=== PATIENT | male | born 1955 | race Caucasian/White ===

== ENCOUNTER 2022-06-06 08:19 | Outpatient (REF) | payer OTHER, SELFPAY ==
--- NOTE | ~2022-06-06 | XR_ITS ---
EXAMINATION: XR CHEST CLINICAL INFORMATION: Weight loss. COMPARISON: X-ray 03/23/2011 TECHNIQUE: 2 views of the chest were obtained. FINDINGS: The mediastinum and janet are within normal limits, stable from previous. No evidence of Consolidation, effusion, edema or pneumothorax. Mild thoracic spine degeneration.. XR/XR chest 2V IMPRESSION: No significant abnormality demonstrated by radiograph.
[2022-06-06 08:32] LABS: MANUAL DIFF FLAG NO
[2022-06-06 09:24] LABS: Basophils Percent Auto 0.5 % (0-2); Eosinophils Absolute Auto 0.2 X10*3/uL (0.0-0.4); Eosinophils Percent Auto 1.7 % (0-4); Hemoglobin 14.9 g/dl (14.0-18.0); Imm Gran Abs Auto 0.04 X10*3/uL (0.00-0.03); Imm Gran Pct Auto 0.5 % (0.0-0.4); Lymphocytes Absolute Auto 2.8 X10*3/uL (1.2-4.9); Lymphocytes Percent Auto 32.8 % (20-40); Mean Corpuscular HGB Conc 33.1 g/dl (31.0-36.0); Mean Corpuscular Hemoglobin 30.7 pg (27.0-33.0); Mean Corpuscular Volume 92.6 fL (80.0-98.0); Monocytes Absolute Auto 0.6 X10*3/uL (0.1-1.2); Neutrophils Percent Auto 57.5 % (45-73); Platelet Count 257 X10*3/uL (160-400); Red Blood Count 4.86 X10*6/uL (4.60-5.80); Red Cell Distribution Width 12.9 % (11.0-16.0); White Blood Count 8.7 X10*3/uL (4.8-10.8)
[2022-06-06 09:54] LABS: Alanine Aminotransferase 11 U/L (0-40); Alkaline Phosphatase 77 U/L (39-117); Anion Gap 13 (12-20); Aspartate Amino Transferase 25 U/L (5-37); Bilirubin Total 0.5 mg/dL (0.0-1.0); Blood Urea Nitrogen 8 mg/dL (9-16); Calcium 9.5 mg/dL (8.4-10.2); Carbon Dioxide 23 mmol/L (22-29); Chloride 108 mmol/L (96-108); Cholesterol 223 mg/dL; Estimated Glomerular Filt Rate > 60; Glucose Fasting 100 mg/dL (60-99); HDL Cholesterol 75 mg/dL; LDL Cholesterol Calculated 127 mg/dl; Potassium 4.4 mmol/L (3.3-5.1); Sodium 140 mmol/L (135-145); Total Protein 6.9 g/dL (6.5-8.0); Triglycerides 108 mg/dL
[2022-06-06 10:13] LABS: Prostate Specific Antigen Scr 0.34 ng/mL (<0.05-4.0)
[2022-06-06 10:25] LABS: Appearance Urine Clear; Color Urine Yellow; Glucose Urine UA Negative (Negative); Leukocyte Esterase Urine Negative (Negative); Nitrite Urine Negative (Negative); Specific Gravity - Urine <= 1.005 (1.005-1.025); Urine Blood Negative (Negative); Urine Ketones Negative (Negative); Urine Protein Negative (Neg-Trace)
== END 2022-06-06 08:20 | disposition home or self-care (01) ==
LOC: HO.LAB 08:19
PROVIDERS: Visit Provider Internal Medicine
DX: R63.4 Abnormal weight loss (principal); E78.00 Pure hypercholesterolemia, unspecified; K21.9 Gastro-esophageal reflux disease without esophagitis; Z12.5 Encounter for screening for malignant neoplasm of prostate
CPT/HCPCS: 36415; 71046; 80053; 80061; 81003; 84153; 85025

== ENCOUNTER → 2022-10-19 07:49 | Outpatient (REF) | payer OTHER, SELFPAY ==
--- NOTE | 2022-10-19 07:53 | CA_ITS ---
Transthoracic Echocardiogram Patient (Last, First, Middle): Rd Santana E Gender: Male Date of : 1955 Age: 67 Procedure Date: 10/19/2022 Procedure Type: Transthoracic Echocardiogram Location: OP Height: 170.18 cm Weight: 74.84 kg BSA: 1.86 m2 Heart Rate: bpm BP: 160 / 86 mmHg Egg Worker: TO Referring MD: Mohsen Lyn MD Symptoms: I49.1 ATRIAL PREMATURE DEPOLARIZATION J44.9 COPD R/O LVH Study Quality: Fair ECG Rhythm: Sinus Conclusions: - The left ventricular systolic function is low normal. The calculated ejection fraction is 52% by biplane method. - No obvious valvular pathology seen on this study. Findings Left Ventricle Normal left ventricular cavity size. There is normal left ventricular wall thickness. The left ventricular systolic function is low normal. The calculated ejection fraction is 52% by biplane method. There is no evidence of regional wall motion abnormalities. Diastolic function is normal for age. LV peak GLS -19.4%, but suspect overestimation. Right Ventricle Normal right ventricular cavity size and systolic function. Atria Both atria are normal in size. Aortic Valve There is a normal trileaflet aortic valve. There is mild calcification of the aortic valve. There is no aortic valve stenosis. There is no aortic valve regurgitation. Mitral Valve The mitral valve appears normal. There is trace mitral valve regurgitation. There is no mitral valve stenosis. Pulmonic Valve The pulmonic valve is likely normal. Tricuspid Valve There is trace tricuspid valve regurgitation. There is no evidence of pulmonary hypertension. Great Vessels The asc aorta is normal in size. Venous The inferior vena cava is normal in size and collapses greater than 50% with inspiration. Pericardium/Pleural There is no evidence of pericardial effusion. Prior Study Comparison No prior study available for comparison. Recommendations, Care & Conclusions No obvious valvular pathology seen on this study. Measurements 2D Linear Measurements IVSd: 0.95 0.6-0.9/0.6-1.0 cm LVIDd: 5.46 3.9-5.3/4.2-5.9 cm LVIDd Index: 2.94 2.4-3.2/2.2-3.1 cm/m2 LVIDs: 3.85 2.0-3.6 cm LVPWd: 0.86 0.7-1.1 cm LA Diam: 3.50 2.7-3.8/3.0-4.0 cm LAIDs Index: 1.88 1.5-2.3 cm/m2 LV Mass: 230.66 67-162/88-224 g LV Mass Index: 124.01 43-95/49-115 g/m2 LVOT Diam: 2.40 3.0+(-)1.3 cm 2D Systolic Function EF 4C: 52.30 >55% EF 2C: 49.40 >55% EF BiP: 51.90 >55% Mitral Valve MV Pk E: 0.63 MV PK A: 0.50 MV Decel Time: 174.00 E/A: 1.30 E'Lateral: 11.00 E'Medial: 8.38 E/E' Med: 7.60 E/E' Lat: 5.80 PHT: 51.00 MVA PHT: 4.31 Decel [place]: 3.65 Aortic Valve AoV Pk Gabriel: 1.10 AoV Mn Gabriel: 0.76 AoV VTI: 0.25 AoV Pk Grad: 5.00 Aov Mn Grad: 3.00 STEVO Cont.VTI: 3.66 LVOT LVOT Pk Gabriel: 0.94 LVOT Mn Gabriel: 0.62 LVOT VTI: 0.20 LVOT Pk Grad: 4.00 LVOT Mn Grad: 2.00 LVOT Diam: 2.40 LVOT Area: 4.52 Diastolic Function MV Pk E: 0.63 MV Pk A: 0.50 E/A: 1.30 E'Medial: 8.38 E/E' Med: 7.60 E' Laterial: 11.00 E/E' Lat: 5.80 Right Ventricle TAPSE (mm): 24.80 TVS' Gabriel: 12.40 Tricuspid Valve TR Pk Gabriel: 1.93 TR Pk Grad: 15.00 RA Press: 3.00 RVSP: 18.00 Great Vessels Aorta Sinus of Valsalva: 3.48 2.0-3.[address] [place]: 2.83 1.7-3.4 cm Ao Asc: 3.10 2.1-3.4 cm Updated in Other Vendor System with Status of Final Cachorro Huddleston MD electronically signed on 10/21/2022 10:18:49 AM with status of Final
== END ==
LOC: HO.CARD 07:49
PROVIDERS: PCP Internal Medicine; Visit Provider Internal Medicine
DX: I49.1 Atrial premature depolarization (principal); J44.9 Chronic obstructive pulmonary disease, unspecified
CPT/HCPCS: 93306; 93356

== ENCOUNTER 2022-11-01 07:47 | Day surgery (SDC) | payer OTHER, SELFPAY ==
--- NOTE | 2022-10-31 13:40 | P.CONAN_ITS ---
Documented by User: Gaby Call NP 10/31/22 13:41 HPI - Anesthesia Eval Consult details Narrative: 67yo M for Colonoscopy [facility] Past Medical History Medical History (Updated 10/31/22 @ 13:20 by Elva Cavanaugh RN) Back pain Elevated cholesterol Emphysema, unspecified Esophageal reflux Surgical History Surgical History (Updated 11/01/22 @ 08:10 by Renae Ochoa RN) History of lung surgery Social History Social History Patient Tobacco Use Status: Current everyday Tobacco user Tobacco use type: Cigarette Cigarette Packs Per Day: 0.5 Cigarettes Per Day: 10.0 Use of substances other than those prescribed or required for medical reasons: No Are you DNR?: No Advance Directives: No Advance Directives Information Provided: Yes Recently lost weight without trying: Yes How much weight loss: 2-13 pounds Nutrition Risks: No Nutritional Risk Meds Allergies Allergy/AdvReac Type Severity Reaction Status Date / Time No Known Allergies Allergy Verified 10/31/22 13:20 Home Medications Medication Instructions Recorded Confirmed Last Taken Type atorvastatin 10 mg tablet 10 mg PO DAILY 10/31/22 10/31/22 Unknown History omeprazole 20 mg capsule,delayed 20 mg PO DAILY 10/31/22 11/01/22 11/01/22 06:00 History release tramadol 50 mg tablet 100 mg PO NEEDED PRN Back Pain 10/31/22 11/01/22 11/01/22 06:00 History Exam Exam Date and Time: October 31, 2022 1340 Pertinent Lab Results Pertinent Lab Results: Laboratory Tests 06/06/22 06/06/22 08:30 08:30 WBC 8.7 Hgb 14.9 Hct 45.0 Plt Count 257 Sodium 140 Potassium 4.4 Chloride 108 Carbon Dioxide 23 BUN 8 L Creatinine 0.87 Narrative Narrative: ECHO 09/2022 Conclusions: - The left ventricular systolic function is low normal.? The ? ? calculated ejection fraction is 52% by biplane method. ? - No obvious valvular pathology seen on this study.? Assessment and Plan Assessment Anesthesia Assessment: Chart Reviewed Documented by User: Missael Ratliff MD 11/01/22 08:17 [facility] Past Medical History Medical History (Updated 10/31/22 @ 13:20 by Elva Cavanaugh RN) Back pain Elevated cholesterol Emphysema, unspecified Esophageal reflux Family History Family history of problems with anesthesia: No Surgical History Surgical History (Updated 11/01/22 @ 08:10 by Renae Ochoa RN) History of lung surgery History of Problems with Anesthesia: No Social History Social History Patient Tobacco Use Status: Current everyday Tobacco user Tobacco use type: Cigarette Cigarette Packs Per Day: 0.5 Cigarettes Per Day: 10.0 Use of substances other than those prescribed or required for medical reasons: No Are you DNR?: No Advance Directives: No Advance Directives Information Provided: Yes Recently lost weight without trying: Yes How much weight loss: 2-13 pounds Nutrition Risks: No Nutritional Risk Meds Allergies Allergy/AdvReac Type Severity Reaction Status Date / Time No Known Allergies Allergy Verified 10/31/22 13:20 Home Medications Medication Instructions Recorded Confirmed Last Taken Type atorvastatin 10 mg tablet 10 mg PO DAILY 10/31/22 10/31/22 Unknown History omeprazole 20 mg capsule,delayed 20 mg PO DAILY 10/31/22 11/01/22 11/01/22 06:00 History release tramadol 50 mg tablet 100 mg PO NEEDED PRN Back Pain 10/31/22 11/01/22 11/01/22 06:00 History Exam Airway Mallampati Class: III TM Dist: >3cm Neck ROM: Limited Heart: rrr Assessment and Plan Assessment Anesthesia Assessment: Anesthesia Plan Discussed Final Anesthetic Review Family History of Problems with Anesthesia: No History of Problems with Anesthesia: No NPO: Yes ASA Class: II Final Preanesthetic Review: No Changes in Pt Med Stat, Meds/Allgs Chart Reviewed, Consent Obtained/Reviewed and Anes Risks/Benef Reviewed Patient Risk: Low Procedure Risk: Low Anesthetic Plan Anesthetic Plan: MAC: Disposition: Standard PACU
[2022-11-01 08:11] VITALS: BMI 25.5
[2022-11-01 08:17] VITALS: BP 142/86; PULSE 60; RESP 16; TEMP 36.3; O2SAT 99
[2022-11-01] MEDS: Lactated Ringers 1,000 ML 100 ML IVCONT (08:34)
--- NOTE | 2022-11-01 09:18 | MHC.SHP ---
Pre-Procedural Eval Section A Date of Service: 11/01/22 Section B Chief Complaint: screening for malignant neoplasm of colon Details of Present Illness: see H&P no changes Relevant Family History (Specify if Yes): Yes Relevant Social History: None Present Medications: see Short Stay Collaborative assessment Medical History: No relevant PMH Allergies: Allergies Allergy/AdvReac Type Severity Reaction Status Date / Time No Known Allergies Allergy Verified 10/31/22 13:20 Review of Systems Sugical H&P ROS: Negative: Constitution, Cardiovascular, Respiratory, Neurological, Psychiatric, Hem-Onc, Allergic/Immunologic, Gastrointestinal, Genitourinary, Musculoskeletal, Integumentary, Endocrine and Eyes/Ears/Nose/Throat Exam Surgical H&P Exam: Normal: HEENT, Normal: Heart, Normal: Lungs, Normal: Extremities, Normal: Abdomen, Normal: Skin and Normal: Neurological Plan Diagnosis/Plan: Unchanged I have reviewed the history and physical and performed a pertinent physical examination on my patient. No changes have occurred unless specified. Time Spent With Patient Time: Total time managing care of this patient today ____ minutes.
--- NOTE | 2022-11-01 09:55 | P.BOP_ITS ---
Brief Operative Note Date of Service: 11/01/22 Pre-op diagnosis: screening Post-op diagnosis: same Procedure: colonoscopy Surgeon: Aung Hale Anesthesia: MAC Was an [employer] Maintainer used for this Procedure?: No Estimated blood loss (mL): 2 Pathology: other Condition: stable Disposition: PACU
[2022-11-01 09:59] VITALS: BP 118/74; PULSE 72; RESP 20; TEMP 37.1; O2SAT 94
[2022-11-01 10:14] VITALS: BP 131/82; PULSE 69; RESP 16; TEMP 36.4; O2SAT 96
--- NOTE | 2022-11-01 11:15 | OP_ITS ---
DATE OF SERVICE: 11/01/2022 SURGEON: Aung Hale MD INDICATIONS: Colon cancer screening and family history of colon cancer. PREOPERATIVE DIAGNOSIS: POSTOPERATIVE DIAGNOSIS: PROCEDURE PERFORMED: Colonoscopy to the terminal ileum with snare polypectomy. ESTIMATED BLOOD LOSS: COMPLICATIONS: ANESTHESIA: Monitored anesthesia care. ASSISTANTS: SPECIMENS: DESCRIPTION OF PROCEDURE: History and physical performed. The risks and benefits of the procedure explained to the patient. Informed consent was obtained. The patient was placed in the left lateral decubitus position. A digital rectal exam was performed and was found to be normal. The Olympus pediatric videocolonoscope was introduced into the rectum and advanced to the cecum. The cecum was identified by transillumination, palpation, and identification of ileocecal valve. Examination was performed. The scope was removed. He tolerated the procedure well and was returned to recovery in stable condition. FINDINGS: The terminal ileum was examined and appeared normal. The visualized colonic mucosa was within normal limits without evidence of masses or ulcers. Three colonic polyps were present, all were less than 10 mm, were removed with a snare. These were located in the cecum, at 40 cm, and in the rectum. No other polyps were identified. The quality of prep was good. There was mild sigmoid diverticulosis. Retroflexed examination showed small internal hemorrhoids. IMPRESSION: Colon polyps. RECOMMENDATION: Follow up the biopsy results. MD FATIMAH Street/ELVER / [phone] MTDD
== END 2022-11-01 10:32 | disposition home or self-care (01) ==
PROVIDERS: PCP Internal Medicine; Visit Provider Internal Medicine Gastroenterology
PROC: 0DJD8ZZ Inspection of Lower Intestinal Tract, Via Natural or Artificial Opening Endoscopic (ICD-10-PCS; CPT 45378; principal; 2022-11-01 09:00)
DX: Z12.11 Encounter for screening for malignant neoplasm of colon (principal); Z80.0 Family history of malignant neoplasm of digestive organs; D12.0 Benign neoplasm of cecum; D12.5 Benign neoplasm of sigmoid colon; K62.1 Rectal polyp; K57.30 Diverticulosis of large intestine without perforation or abscess without bleeding; K64.8 Other hemorrhoids; K21.9 Gastro-esophageal reflux disease without esophagitis; E78.00 Pure hypercholesterolemia, unspecified; J43.9 Emphysema, unspecified; E73.9 Lactose intolerance, unspecified; M51.9 Unspecified thoracic, thoracolumbar and lumbosacral intervertebral disc disorder; Z98.890 Other specified postprocedural states; F17.210 Nicotine dependence, cigarettes, uncomplicated; Z79.899 Other long term (current) drug therapy
CPT/HCPCS: 45385; 88305; J3010

== ENCOUNTER 2025-01-30 07:55 | Outpatient (AMB) | payer MEDICARE, SELFPAY ==
--- NOTE | 2025-01-30 07:54 | A.OFFPC_ITS ---
Vital Signs 01/30/25 08:00 Height 5 ft 7 in Weight 156 lb BMI 24.4 BP 156/76 H Blood Pressure Location Rt brachial Position Sitting Respiration 18 Pulse 78 Pulse Source Pulse Oximeter Temp 97.7 F Temp Source Temporal Artery Scan Pulse Oximetry (%) 99 Oxygen Delivery Method Room Air Intake Visit Reasons: Routine-Croke pt Production Supervisor Off Shift Required: No Accompanied by: Self / Same As Patient Allergies No Known Allergies Allergy (Verified 01/30/25 07:54) Tobacco use date assessed: 01/30/25 Fall risk assessment: No Falls in past year Last assessed Fall Risk: 01/30/25 HPI HPI Comments History of Present Illness Details The patient is a 69-year-old male presenting with chronic back pain. The patient reports sustaining a back injury many years ago, which has progressively worsened over time. To manage the discomfort, he has been prescribed tramadol, which he has been taking for several years. The dosage consists of one pill at 2:00 am and another at 1:00 pm, although he does not take it consistently due to the side effects, such as drowsiness, particularly when driving. The patient has previously attempted to manage pain with Tylenol or Motrin, but experienced gastrointestinal discomfort. The patient's chronic pain has been managed with tramadol to avoid stomach issues associated with alternative medications but expresses a desire to find alternatives to tramadol and considers it undesirable. In addition to discussing back pain, the visit also covered surgical history related to the lungs and medication management for high cholesterol. The patient has been compliant with taking atorvastatin and omeprazole, with cholesterol levels reportedly well-controlled according to past laboratory results. The patient denies any other comorbidities. Medical History: - Chronic back pain - High cholesterol managed with atorvast atin - Possible essential hypertension - Environmental allergies - Ptosis repair Surgical History: - Lung wedge resection for suspected can cerous lesion, which was benign - Blepharoplasty for ptosis Medications: - Tramadol for chronic pain (da dos: 1 p ill at 2:00 am and 1:00 pm) - Atorvastatin for cholesterol control, 1 pill every evening - Omeprazole for gastric management Family History: - Mother from colon cancer - Father from myocardial infarc tion - Maternal grandfather from hea rt attack Social: - Retired, maintaining an active lifesty le - Resides in own home in [place] - Current smoker with a history of at le ast 40 years, smoking half to one pack daily - Alcohol consumption: 6 beers over week ends - Reports heavy salt intake, experiencin g minor aches post-consumption consistent with gout [facility] Medical History (Updated 01/30/25 @ 08:23 by Mohit Brown MD) Foot pain Screening for lung cancer Low back pain Hypertriglyceridemia Emphysema, unspecified Esophageal reflux Back pain Elevated cholesterol Surgical History (Updated 11/01/22 @ 08:10 by Renae Ochoa RN) History of lung surgery Social History Housing: House Patient Tobacco Use Status: Current everyday Tobacco user Tobacco use type: Cigarette Cigarette Packs Per Day: 0.5 Cigarettes Per Day: 10.0 e-Cigarette/Vaping Use: Never Used service: No Current occupational status: retired Questionnaire PHQ-9 Over the last 2 weeks, how often have you been bothered by any of the following problems? 1. Little interest or pleasure in doing things: not at all 2. Feeling down, depressed, or hopeless: not at all 3. Trouble falling or staying asleep, or sleeping too much: not at all 4. Feeling tired or having little energy: not at all 5. Poor appetite or overeating: not at all 6. Feeling bad about yourself - or that you are a failure or have let yourself or your family down: not at all 7. Trouble concentrating on things, such as reading the newspaper or watching television: not at all 8. Moving or speaking so slowly that other people could have noticed. Or the opposite - being so fidgety or restless that you have been moving around a lot more than usual: not at all 9. Thoughts that you would be better off or of hurting yourself in some way: not at all Total score: 0 Depression Screening Interpretation: Negative Depression Screening Done: Yes 32757 - PHQ-9 Billing: Yes Source: Developed by Drs. Len Patricia, Delaney Reina, Mk Payton and colleagues, with an educational page from [employer]. Thrive Questionnaire Date Thrive assessed: 01/30/25 I am a: Patient What is your living situation today?: I have a steady place to live Within the past 12 months, did the food you bought not last and you didn't have the money to get more?: Never true Within the past 12 months, did you worry whether your food would run out before you got money to buy more?: Never true Do you have trouble paying for medicines?: No Do you have trouble getting transportation to medical appointments?: No Do you have trouble paying your heating and electricity bill?: No Do you have trouble taking care of your child, family member or friend?: No Do you have trouble with day-to-day activities such as bathing, preparing meals, shopping, managing finances, etc.?: No Are you currently unemployed and looking for a job?: No Are you interested in more education?: No THRIVE Score: 0 AUDIT C Alcohol Use Questionnaire (AUDIT-C) 1. How often do you have a drink containing alcohol?: 2-4 times a month 2. How many drinks containing alcohol do you have on a typical day when you are drinking?: 5 or 6 3. How often do you have six or more drinks on one occasion?: Never Total Score: 4 INA-7 AMB Questionnaire INA-7 Date INA - 7 assessed: 01/30/25 Feeling nervous, anxious, or on edge: 0 = Not at all Not being able to stop or control worryin = Not at all Worrying too much about different things: 0 = Not at all Trouble relaxin = Not at all Being so restless that it is hard to sit still: 0 = Not at all Becoming easily annoyed or irritable: 0 = Not at all Feeling afraid as if something awful might happen: 0 = Not at all Total INA-7 score (0-4 normal; 5-9 mild; 10-14 moderate; 15-21 severe): 0 Source: Developed by Drs. Len Patricia, Delaney Reina, Mk Payton and colleagues, with an educational page from [employer]. INA-7 Assessment Billing INA-7 Assessment Tool: INA-7 Assessment 18561 Review of Systems Const Details: - Musculoskeletal: Reports chronic back pain - Respiratory: Denies shortness of breath - Cardiovascular: Reports palpitations, denied chest pain - Gastrointestinal: Denies nausea, vomiting - Neurological: Denies headaches - Allergies/Immunologic: Reports morning allergies with nasal symptoms - Skin: Denies any current rashes All systems reviewed & are unremarkable except as noted in HPI and below Physical exam (Primary Care) Vital Signs: Last Vital Signs Temp 97.7 F 01/30/25 08:00 Pulse 78 01/30/25 08:00 Resp 18 01/30/25 08:00 BP 156/76 H 01/30/25 08:00 Pulse Ox 99 01/30/25 08:00 Oxygen Delivery Method Room Air 01/30/25 08:00 BMI result Body Mass Index 24.4 Tobacco/Smoking Status: Tobacco use Status Tobacco use date assessed 01/30/25 01/30/25 08:03 Patient Tobacco Use Status Current everyday Tobacco 01/30/25 08:03 Tobacco use type Cigarette 01/30/25 08:03 e-Cigarette/Vaping Use Never Used 01/30/25 08:03 40PPD and currently smoes a pack per day Are you ready to quit: No Tobacco cessation counseling provided: Yes Relapse Prevention: discussed the importance of a supportive environment and discussed dietary, exercise and/or lifestyle changes Number of minutes spent counselin CPT code: 17203 - 4-10 Minutes Depression Screening Interpretation: Negative Const Other: General: Alert and oriented, Well nourished, No acute distress. Eye: Pupils are equal, round and reactive to light, Intact accommodation, Extraocular movements are intact, Normal conjunctiva, Vision unchanged. HENT: Normocephalic, Atraumatic, Tympanic membranes are clear, Normal hearing, Oral mucosa is moist, No pharyngeal erythema, Ear canals patent. Respiratory: Lungs CTA bilaterally, No wheeze, Respirations are non-labored. Cardiovascular: Regular rate, Regular rhythm, S1 auscultated, S2 auscultated, Murmur present, Good pulses equal in all extremities, Normal peripheral perfusion, No edema. Gastrointestinal: Soft, Non-tender, Non-distended, Normal bowel sounds, No organomegaly. Musculoskeletal: Normal range of motion, Normal strength, No tenderness, No swelling, No deformity, Normal gait. Integumentary: Warm, Dry, [employer], Intact. Neurologic: Alert, Oriented, Normal sensory, Normal motor function, No focal defects, Cranial Nerves II-XII are grossly intact, Normal deep tendon reflexes. Psychiatric: Cooperative, Appropriate mood & affect, Normal judgment. Coding Level of Care Code New Pt Level 4 (97109) New Pt Prev Care >65yr (31241) Diagnoses Hypertriglyceridemia E78.1 Chronic bilateral low back pain without sciatica M54.50; G89.29 Chronicity: chronic Back pain laterality: bilateral Sciatica presence: without sciatica Screening for lung cancer Z12.2 Foot pain M79.673 Additional Codes PHQ-9 - 00559 - PHQ-9 Billing: Yes ([id number]) INA-7 Assessment Billing - INA-7 Assessment Tool: INA-7 Assessment 64773 ([id number]) Vital Signs *Quality* - CPT code: 26969 - 4-10 Minutes ([id number]) Assessment & Plan Assessment & Plan (1) Hypertriglyceridemia: Comment: - Continue Atorvastatin 10mg Daily - WIll obtain new labs today Code(s): E78.1 - Pure hyperglyceridemia Category: Medical (2) Low back pain: Comment: - The patient's chronic back pain is recognized as progressively worsening. He currently manages it with tramadol, but alternatives will be sought. Referral to pain management for procedural intervention is sent with a goal to taper off tramadol over time. Code(s): M54.50 - Low back pain, unspecified Category: Medical Qualifiers: Chronicity: chronic Back pain laterality: bilateral Sciatica presence: without sciatica Qualified Code(s): M54.50 - Low back pain, unspecified; G89.29 - Other chronic pain (3) Screening for lung cancer: Comment: 40PPD smoking history Resistant to quiting Code(s): Z12.2 - Encounter for screening for malignant neoplasm of respiratory organs Category: Medical (4) Foot pain: Comment: - Unclear foot pain, that worsens with intake of red meats - Will order Uric Acid Levels Code(s): M79.673 - Pain in unspecified foot Category: Medical Plan 5. History of Lung Surgery - Lung surgery was for a lesion that was non-cancerous. The patient reported no complications or requirements for further intervention post-surgery. 6. Environmental Allergies - Discussed environmental triggers causing morning nasal symptoms. Advised on potential management strategies for symptoms, though specific treatments were not explored in detail during this visit. I discussed with the patient the management of chronic back pain, emphasizing a referral to pain management for potential interventional procedures with the aim to discontinue tramadol use. We agreed on the importance of an x-ray to evaluate the current status of the spine. The patient disclosed a history of high cholesterol, well-managed by atorvastatin. His pertinent surgical history of lung surgery was reviewed, with attention towards regular lung cancer screening given his tobacco use. We deliberated over the elevated blood pressure observed during the visit and its potential situational nature, likely influenced by pre- visit behaviors such as smoking and dietary choices. Discussions also encompassed the necessity for lifestyle modifications including smoking cessation and dietary salt reduction. Continually smoking raised concerns of lung cancer, warranting annual screenings. Finally, we touched on the impact of environmental allergies observed in the mornings. Orders: Orders Complete Blood Count Auto Diff Today E78.1 - Pure hyperglyceridemia Hemoglobin A1c Today E78.1 - Pure hyperglyceridemia Hepatitis A,B,C Profile Today E78.1 - Pure hyperglyceridemia Syphilis Screen Today E78.1 - Pure hyperglyceridemia TSH reflex Free T4 Today E78.1 - Pure hyperglyceridemia Vitamin D 25-OH Total Today E78.1 - Pure hyperglyceridemia CT lung screening Today Z12.2 - Encounter for screening for malignant neoplasm of respiratory organs Uric Acid Today M79.673 - Pain in unspecified foot Comprehensive Met. Panel Today E78.1 - Pure hyperglyceridemia HIV Ab/Ag Today E78.1 - Pure hyperglyceridemia Lipid Panel Today E78.1 - Pure hyperglyceridemia XR lumbar spine 2-3V Today M54.50 - Low back pain, unspecified Referrals Pain Management Referral M54.50 - Low back pain, unspecified Medications: Changed From tramadol Take 2 tab orals in am and 1 tab oral at night 30 days 90 tabs 1RF Back Pain M54.50 - Low back pain, unspecified To tramadol 50 mg orally PRN; 90 tabs 1RF Back Pain 30 days M54.50 - Low back pain, unspecified Patient Instructions: - Follow up with pain management for back pain alternatives to tramadol. - Continue taking atorvastatin regularly for cholesterol management. - Attempt to minimize smoking to reduce health risks; exploration of cessation support options is encouraged. - Consider reducing salt intake, especially in evenings, to address blood pressure and possible gout symptoms. - Attend the scheduled blood tests and screenings as advised. - Follow up annually for lung cancer screening due to smoking history and past lung surgery. - Return for follow up in six months unless issues arise sooner.
[2025-01-30 08:00] VITALS: BP 156/76; PULSE 78; RESP 18; TEMP 36.5; O2SAT 99; BMI 24.4
--- OUTSIDE RECORDS SUMMARY | 2025-01-30 08:01 | XMS_ITS | Patient Health Record ---
Author Organization [facility] Address [address] [place] [address] Care Team Providers Care Hi Ranger Operator Name Role Phone Riki (RETIRED) Mohsen DEAL Primary Care Provide Aung Hobbs Jr Unavailable Allergies No Known Allergies Reason For Referral No Information Medications Medication SIG (Take, Route, Frequency, Duration) Notes Start Date End Date Status MiraLax (colon prep) 17 GM/SCOOP mixed with Gatorade or Crystal Light Orally begin at 5:00 p.m. the day before the procedure for 1 day 09/28/2022 Active Omeprazole 20 MG 1 capsule Orally Onc e a day Active traMADol HCl 50 MG 2 tablet as needed O rally prn Active Immunizations Vaccine Route Administration Date Status Comme nts Influenza Unknown 09/28/2022 Refused Social History Tobacco Use: Social History Observation Description Date Details (start date - stop date) Current Smoker NA - NA Tobacco Use/Smoking Question Answer Notes Patient is a current smoker How often do you smoke cigarettes? every day How many cigarettes a day do you smoke? 6-10 How soon after you wake up d o you smoke your first cigarette? 6-30 minutes Are you interested in quitting? Thinking about q uitting Problems Problem Type SNOMED Code ICD Code Onset Dates Problem Status W/U Status Risk Notes Problem [id number] Colon cancer screening (Z12.11) Active confirmed Problem 92366429 Encounter for other preprocedural examination (Z01.818) Active confirmed Problem 977820627 Family history o f colon cancer (Z80.0) Active confirmed Plan Of Treatment Future Test Test Name Order Date COLONOSCOPY 06/21/2012 COLONOSCOPY 08/23/2017 COLONOSCOPY 09/28/2022 Insurance Providers Payer Name Payer Address Payer Phone Subscriber Number Group Number Insured Name Patient Relationship to Insured Coverage Start Date Coverage End Date [employer] [address] [address] [place] [address] [id number] LYRIC CARCAMO Self - patient is the insured Medical (General) History Medical History History ICD Code Elevated cholesterol back pain/disc disease esophageal reflux emphysema Surgical History Surgery Date(Month/Year) Right upper lobe wedge resection, benign pulmonary nodule 01/08
== END 2025-01-30 09:59 | disposition home or self-care (01) ==
LOC: HO.HMCHD 07:55
PROVIDERS: PCP Internal Medicine; Visit Provider Student in an Organized Health Care Education/Training Program
DX: E78.1 Pure hyperglyceridemia (principal); M54.50 Low back pain, unspecified; G89.29 Other chronic pain; Z12.2 Encounter for screening for malignant neoplasm of respiratory organs; M79.673 Pain in unspecified foot

== ENCOUNTER → 2025-01-30 07:55 | Outpatient (BNVA) | payer MEDICARE, SELFPAY | PROVIDERS: PCP Internal Medicine; Visit Provider Student in an Organized Health Care Education/Training Program | DX: E78.1 Pure hyperglyceridemia (principal); M54.50 Low back pain, unspecified; G89.29 Other chronic pain; M79.673 Pain in unspecified foot | CPT/HCPCS: 96127; 99202 ==

== ENCOUNTER 2025-02-03 09:33 | Outpatient (REF) | payer MEDICARE, SELFPAY ==
--- NOTE | ~2025-02-03 | XR_ITS ---
EXAMINATION: XR LUMBOSACRAL SPINE CLINICAL INFORMATION: M54.50 - Low back pain, unspecified COMPARISON: None available. TECHNIQUE: Three views of the lumbosacral spine. FINDINGS: Atherosclerotic calcification is present in the lower abdominal aorta and proximal common iliac arteries. There are 5 non-rib bearing lumbar segments. Vertebral body height and alignment is preserved. T12-L1: There is mild disc space narrowing. L1-L2: There is subtle retrolisthesis. There is moderate disc space narrowing with endplate sclerosis and osteophytes L2-L3: There is subtle grade 1 retrolisthesis, moderate disc space during, and anterior osteophytes L3-L4: There is subtle grade 1 retrolisthesis and mild disc space narrowing L4-L5: Unremarkable L5-S1: Unremarkable XR/XR lumbar spine 2-3V IMPRESSION: Degenerative disc disease is most advanced at L1-L2 by L2-3. Electronically signed by: Samm Plummer MD 02/03/2025 10:13 AM EDT
[2025-02-03 09:47] LABS: MANUAL DIFF FLAG NO
[2025-02-03 10:07] LABS: Hematocrit 45.8 % (42.0-52.0); Hemoglobin 15.1 g/dl (14.0-18.0); Imm Gran Abs Auto 0.03 X10*3/uL (0.00-0.03); Imm Gran Pct Auto 0.3 % (0.0-0.4); Lymphocytes Absolute Auto 2.5 X10*3/uL (1.2-4.9); Mean Corpuscular HGB Conc 33.0 g/dl (31.0-36.0); Mean Corpuscular Hemoglobin 30.5 pg (27.0-33.0); Mean Corpuscular Volume 92.5 fL (80.0-98.0); NRBC Abs Auto 0.000 X10*3/uL (0.0-0.012); NRBC Pct Auto 0.0 /100WBC (0.0-0.2); Platelet Count 304 X10*3/uL (160-400); Red Blood Count 4.95 X10*6/uL (4.60-5.80); White Blood Count 9.1 X10*3/uL (4.8-10.8)
[2025-02-03 10:17] LABS: Hemoglobin A1C 163.2587 umol/L; Total Hemoglobin (HGBA1C) 3967.9435 umol/L
[2025-02-03 10:45] LABS: Alanine Aminotransferase 10 U/L (0-40); Albumin Level 4.2 g/dL (3.5-5.0); Alkaline Phosphatase 75 U/L (39-117); Anion Gap 14 (12-20); Aspartate Amino Transferase 29 U/L (5-37); Blood Urea Nitrogen 7 mg/dL (9-16); Calcium 9.2 mg/dL (8.4-10.2); Carbon Dioxide 24 mmol/L (22-29); Chloride 108 mmol/L (96-108); Cholesterol 222 mg/dL (<200); Estimated Glomerular Filt Rate > 60; HDL Cholesterol 93 mg/dL (>40); Potassium 3.8 mmol/L (3.3-5.1); Sodium 142 mmol/L (135-145); Total Protein 7.2 g/dL (6.5-8.0); Triglycerides 110 mg/dL (<150); Uric Acid 6.1 mg/dL (3.4-7.0)
[2025-02-03 10:50] LABS: Syphilis Screen Nonreactive (Nonreactive)
--- OUTSIDE RECORDS SUMMARY | 2025-02-03 10:50 | XMS_ITS | Patient Health Record ---
Author Organization [facility] Address [address] [place] [address] Care Team Providers Care Technical Aid Name Role Phone Riki (RETIRED) Mohsen DEAL [...] Problem Status W/U Status Risk Notes Problem [id number] Colon cancer screening (Z12.11) Active confirmed Problem 35167025 Encounter for other preprocedural examination (Z01.818) Active confirmed Problem 722540534 Family history o f colon cancer (Z80.0) Active confirmed Plan Of Treatment Future Test Test Name Order Date COLONOSCOPY 06/21/2012 COLONOSCOPY 08/23/2017 COLONOSCOPY 09/28/2022 Insurance Providers Payer Name Payer Address Payer Phone Subscriber Number Group Number Insured Name Patient Relationship to Insured Coverage Start Date Coverage End Date [employer] [address] [address] [address] [place] [address] [id number] LYRIC CARCAMO Self - patient is the insured Medical (General) History Medical History History ICD Code Elevated cholesterol back pain/disc disease esophageal reflux emphysema Surgical History Surgery Date(Month/Year) Right upper lobe wedge resection, benign pulmonary nodule 01/08
[2025-02-03 10:53] LABS: HBS Num1 0.31 mIU/mL (0-7.99); HBc Num1 0.12 S/CO (0.00-0.79); HBsAGNum1 0.40 S/CO (0.00-0.99); HIV Num 1 0.06 S/CO (0.00-0.99); Hepatitis A Antibody IgM 0.18 Index (0-0.79); Hepatitis B Surface Antigen Negative (Negative); ~HepC Num1 0.07 S/CO (0.00-0.79); ~Hepatitis A Antibody IgM Nonreactive (Nonreactive); ~Hepatitis B Surface Antibody NONREACTIVE (Nonreactive); ~Hepatitis C Antibody Nonreactive (Nonreactive)
== END 2025-02-03 09:34 | disposition home or self-care (01) ==
LOC: HO.XRAY 09:33
PROVIDERS: PCP Student in an Organized Health Care Education/Training Program; Visit Provider Student in an Organized Health Care Education/Training Program
DX: Z11.3 Encounter for screening for infections with a predominantly sexual mode of transmission (principal); Z11.59 Encounter for screening for other viral diseases; Z11.4 Encounter for screening for human immunodeficiency virus [HIV]; E78.1 Pure hyperglyceridemia; Z13.1 Encounter for screening for diabetes mellitus; M79.673 Pain in unspecified foot; M54.50 Low back pain, unspecified; Z72.89 Other problems related to lifestyle
CPT/HCPCS: 36415; 72100; 80053; 80061; 82306; 83036; 84443; 84550; 85025; 86704; 86706; 86709; 86780; 86803; 87340; 87389

== ENCOUNTER → 2025-02-03 09:49 | Outpatient (BNV) | payer MEDICARE, SELFPAY | PROVIDERS: PCP Student in an Organized Health Care Education/Training Program; Visit Provider Radiology Diagnostic Radiology | DX: M51.360 Other intervertebral disc degeneration, lumbar region with discogenic back pain only (principal) | CPT/HCPCS: 72100 ==

== ENCOUNTER 2025-02-20 13:05 | Outpatient (AMB) | payer MEDICARE, SELFPAY ==
--- NOTE | 2025-02-20 13:16 | MHC.OFFVIS ---
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 He reported that this pain started 15 years ago. He had a trauma at [facility] facility. He reports his pain today 01/05. He reports that standing and walking aggravates his pain. Flexing forward equally aggravates his pain with flexing backwards. Coughing increase his pain. He denies radiation of the pain in bilateral lower extremities. He reports that he is not comfortable lying flat in bed. He is unable to sleep normally he can do activities of daily living, he is able to take care of himself but he can not function normally. He is retired individual. His pain is severe all all day long without variation. In terms of tissue damage he describes his pain as pulsing stabbing and sharp sensation. He had x-ray of the lumbar spine results of which dictated as below. He had physical therapy several times attempts in the past 15 years which only aggravated his pain. He went to a chiropractor 15 years ago and it also aggravated his pain. He tried over the years bracing and occupational therapy with supposed to help his pain but it did not. He tried 10s unit with no help. He had facet joint injections performed by Dr. Thacker long time ago. He denies help from those injections. He tried tramadol for his pain but stopped this medication because it made him lightheaded and dizzy and caused him to be anxious. His past medical history significant for elevated cholesterol. Past surgical history 10 years ago he had lung resection for benign tumor. He admits smoking 3/4 of pack of cigarettes a day. He drinks 3-6 beers a week. He denies recreational drugs he admits drinking soda. [facility] Medical History (Updated 02/20/25 @ 14:01 by Shai Mullen MD) Foot pain Screening for lung cancer Low back pain Hypertriglyceridemia Emphysema, unspecified Esophageal reflux Back pain Elevated cholesterol Surgical History (Updated 11/01/22 @ 08:10 by Renae Ochoa RN) History of lung surgery Social History Housing: House Patient Tobacco Use Status: Current everyday Tobacco user Tobacco use type: Cigarette Cigarette Packs Per Day: 0.5 Cigarettes Per Day: 10.0 e-Cigarette/Vaping Use: Never Used service: No Current occupational status: retired Review of Systems Const All systems reviewed & are unremarkable except as noted in HPI and below ENT Reports Normal hearing present Neuro Reports Normal hearing present, Denies Abnormal speech present, Denies confusion and Denies Sensory deficit (Neuro) Psych Denies confusion Physical Exam Vital Signs: Last Vital Signs Pulse 73 02/20/25 13:17 Resp 18 02/20/25 13:17 BP 173/92 H 02/20/25 13:17 Const General: no acute distress; No confusion Nutritional Appearance: well nourished Orientation/consciousness: patient oriented x3 and No confusion Limitations: no limitations Eyes General: appearance normal, both eyes and all related structures Pupils: Equal, round and reactive pupils present EOM: EOMs intact bilaterally Neck Neck: Yes full ROM Chest Chest palpation & inspection: normal inspection of the chest Resp Effort & Inspection: normal respiratory effort, able to speak in complete sentences, normal respiratory pattern, no audible wheezes and no cough Cardio Jugular venous distension: no JVD GI Inspection: Yes normal to inspection Back/Spine/Pelvis Other: Loading test is positive bilaterally. There is tenderness on palpation in the projection of approximately T12-L1 L2 and L3 spinous processes as well as paraspinal regions of these vertebras. Valsalva maneuver aggravate his pain. Denies radiation of the pain into bilateral lower extremities. Denies radiation of the pain in bilateral groins. Denies pelvic organ dysfunction. Neuro General: patient oriented x3, gait normal and No confusion Cranial nerves: Yes CN's II-XII intact bilaterally, Yes Equal, round and reactive pupils present, Yes Normal hearing present and Yes Ability to bilaterally elevate shoulders present Speech: No Abnormal speech present Gait exam (Neuro): Normal gait present Motor exam (neuro): 5/5 motor strength present throughout Sensory Exam: No Sensory deficit (Neuro) Extrem General: No pedal edema Psych Speech and movement: Normal speech and movement present Affect: normal affect Attitude: cooperative Thought process: Normal thought process present Thought content: Normal thought content present Insight: Good insight present (Psych) Judgement: Good judgement present (Psych) Results Reviewed Results Reviewed: XR LUMBOSACRAL SPINE CLINICAL INFORMATION: M54.50 - Low back pain, unspecified COMPARISON: None available. TECHNIQUE: Three views of the lumbosacral spine. FINDINGS: Atherosclerotic calcification is present in the lower abdominal aorta and proximal common iliac arteries. There are 5 non-rib bearing lumbar segments. Vertebral body height and alignment is preserved. T12-L1: There is mild disc space narrowing. L1-L2: There is subtle retrolisthesis. There is moderate disc space narrowing with endplate sclerosis and osteophytes L2-L3: There is subtle grade 1 retrolisthesis, moderate disc space during, and anterior osteophytes L3-L4: There is subtle grade 1 retrolisthesis and mild disc space narrowing L4-L5: Unremarkable L5-S1: Unremarkable IMPRESSION: Degenerative disc disease is most advanced at L1-L2 by L2-3. Assessment & Plan Assessment & Plan (1) Spondylosis of lumbar region without myelopathy or radiculopathy: Code(s): M47.816 - Spondylosis without myelopathy or radiculopathy, lumbar region Category: Medical (2) Spondylosis of thoracic region without myelopathy or radiculopathy: Code(s): M47.814 - Spondylosis without myelopathy or radiculopathy, thoracic region Category: Medical (3) Chronic pain syndrome: Code(s): G89.4 - Chronic pain syndrome Category: Medical Plan Most likely this patient's pain is coming from spondylosis of the lumbar spine. The pain of this patient is axial and most likely facetogenic in nature. I will schedule this patient for diagnostic medial branch block bilateral T11, T12, and L1 medial branches. If this diagnostic injection will result in good pain relief on his pain diary we will discuss possibility of treatment of his pain with radiofrequency ablation of peripheral nerve stimulation. If this injection will not result in good pain relief I will schedule him for the MRI of the lumbar spine. In the past the injection of this patient was very traumatic for him. He requests me to schedule this procedure under moderate sedation in the operating room. Patient Instructions: I here by testify that I spent 45 minutes in conversation with this patient as well as evaluating his prior records and prior diagnostic studies as well as planning his care and organizing this note. Coding Level of Care Code New Pt Level 4 (19007) Diagnoses Spondylosis of lumbar region without myelopathy or radiculopathy M47.816 Spondylosis of thoracic region without myelopathy or radiculopathy M47.814 Chronic pain syndrome G89.4
[2025-02-20 13:17] VITALS: BP 173/92; PULSE 73; RESP 18
--- OUTSIDE RECORDS SUMMARY | 2025-02-20 17:50 | XMS_ITS | Patient Health Record ---
Author Organization [facility] Address [address] [place] [address] Care Team Providers Care Aviation Project Manager Name Role Phone Riki (RETIRED) Mohsen DEAL Primary Care Provide Aung Hobbs Jr Unavailable [phone] Allergies No Known Allergies Reason For Referral [...] Problem Status W/U Status Risk Notes Problem [id number] Colon cancer screening (Z12.11) Active confirmed Problem [id number] Encounter for other preprocedural examination (Z01.818) Active confirmed Problem [id number] Family history o f colon cancer (Z80.0) Active confirmed Plan Of Treatment Future Test Test Name Order Date COLONOSCOPY 06/21/2012 COLONOSCOPY 08/23/2017 COLONOSCOPY 09/28/2022 Insurance Providers Payer Name Payer Address Payer Phone Subscriber Number Group Number Insured Name Patient Relationship to Insured Coverage Start Date Coverage End Date [employer] [address] [address] [place] [address] [id number] LYRIC CARCAMO Self - patient is the insured Medical (General) History Medical History History ICD Code Elevated cholesterol back pain/disc disease esophageal reflux emphysema Surgical History Surgery Date(Month/Year) Right upper lobe wedge resection, benign pulmonary nodule 01/08
== END 2025-02-20 13:49 | disposition home or self-care (01) ==
LOC: HO.PMC 13:06
PROVIDERS: PCP Student in an Organized Health Care Education/Training Program; Visit Provider Anesthesiology
DX: M47.816 Spondylosis without myelopathy or radiculopathy, lumbar region (principal); M47.814 Spondylosis without myelopathy or radiculopathy, thoracic region; G89.4 Chronic pain syndrome
CPT/HCPCS: 99204

== ENCOUNTER → 2025-02-20 13:05 | Outpatient (BNVA) | payer MEDICARE, SELFPAY | PROVIDERS: PCP Student in an Organized Health Care Education/Training Program; Visit Provider Anesthesiology | DX: M47.816 Spondylosis without myelopathy or radiculopathy, lumbar region (principal); M47.814 Spondylosis without myelopathy or radiculopathy, thoracic region; G89.4 Chronic pain syndrome | CPT/HCPCS: 99202 ==

== ENCOUNTER 2025-03-21 06:57 | Day surgery (SDC) | payer MEDICARE, SELFPAY ==
--- NOTE | 2025-03-19 11:51 | HO.ANESPROP2 ---
Documented by User: Gaby Call NP 03/19/25 11:51 HPI - Anesthesia Eval Consult details Narrative: 69yo M for Bilateral Diagnostic [id number] Medial Branch Block PMFSH Active Problems Active Problems: All Active Problems Chronic pain syndrome (Acute) Spondylosis of thoracic region without myelopathy or radiculopathy (Acute) Spondylosis of lumbar region without myelopathy or radiculopathy (Acute) Foot pain (Acute) Screening for lung cancer (Acute) Low back pain (Acute) Hypertriglyceridemia (Acute) Past Medical History Medical History Foot pain Screening for lung cancer Low back pain Hypertriglyceridemia Emphysema, unspecified Esophageal reflux Back pain Elevated cholesterol Family History Family history of problems with anesthesia: No Surgical History Surgical History History of lung surgery History of Problems with Anesthesia: No Social History Social History Housing: House Patient Tobacco Use Status: Current everyday Tobacco user Tobacco use type: Cigarette Cigarette Packs Per Day: 0.5 Cigarettes Per Day: 10.0 e-Cigarette/Vaping Use: Never Used Use of substances other than those prescribed or required for medical reasons: No Advance Directives: No Advance Directives Information Provided: Yes service: No Current occupational status: retired [employer] Allergies Allergy/AdvReac Type Severity Reaction Status Date / Time No Known Allergies Allergy Verified 02/20/25 13:15 Home Medications ?Medication ?Instructions ?Recorded ?Confirmed ?Last Taken ?Type omeprazole 20 mg capsule,delayed 20 mg PO DAILY 10/31/22 03/19/25 11/01/22 06:00 History release cholecalciferol (vitamin D3) 25 25 mcg PO DAILY 01/30/25 03/19/25 Unknown History mcg (1,000 unit) capsule Assessment and Plan Assessment Anesthesia Assessment: Chart Reviewed Final Anesthetic Review Family History of Problems with Anesthesia: No History of Problems with Anesthesia: No Documented by User: Juliet Uribe MD 03/21/25 08:11 PMFSH Past Medical History Medical History Foot pain Screening for lung cancer Low back pain Hypertriglyceridemia Emphysema, unspecified Esophageal reflux Back pain Elevated cholesterol Surgical History Surgical History History of lung surgery Social History Social History Housing: House Patient Tobacco Use Status: Current everyday Tobacco user Tobacco use type: Cigarette Cigarette Packs Per Day: 0.5 Cigarettes Per Day: 10.0 e-Cigarette/Vaping Use: Never Used Use of substances other than those prescribed or required for medical reasons: No Advance Directives: No Advance Directives Information Provided: Yes service: No Current occupational status: retired [employer] Allergies Allergy/AdvReac Type Severity Reaction Status Date / Time No Known Allergies Allergy Verified 02/20/25 13:15 Home Medications ?Medication ?Instructions ?Recorded ?Confirmed ?Last Taken ?Type omeprazole 20 mg capsule,delayed 20 mg PO DAILY 10/31/22 03/19/25 11/01/22 06:00 History release cholecalciferol (vitamin D3) 25 25 mcg PO DAILY 01/30/25 03/19/25 Unknown History mcg (1,000 unit) capsule Exam Airway Mallampati Class: III TM Dist: >3cm Neck ROM: Limited Heart: rrr Lungs: wheezy Assessment and Plan Assessment Anesthesia Assessment: Anesthesia Plan Discussed and Smoking Cess. Discussed Final Anesthetic Review NPO: Yes ASA Class: III Final Preanesthetic Review: Anes Risks/Benef Reviewed (wheezing despiteresp tx, discussed with ca, ? ?..pure LA ?) Patient Risk: Intermediate Procedure Risk: Low Anesthetic Plan Anesthetic Plan: Other (wheezing ; surgeon to explore pur local options )
[2025-03-19 15:48] VITALS: BMI 24.3
--- NOTE | ~2025-03-21 | FL_ITS ---
EXAMINATION: FL GUIDANCE ONLY HISTORY: Dx [id number] MBB, bilateral COMPARISON: Correlation is made to plain films of the lumbar spine dated 02/03/2025. TECHNIQUE: Fluoroscopy time: 37 seconds. Cumulative Dose: 13.299 mGy. DAP: 4.387 Gycm2 Images: 12. FINDINGS: Fluoroscopic spot films of the thoracolumbar junction demonstrate needles and contrast material in the regions of the bilateral T12, L1, and L2 pedicles. FL/FL guidance in OR IMPRESSION: Fluoroscopy during procedure. Please see procedure report for additional information. Electronically signed by: Len Ley MD 03/21/2025 09:14 AM EDT
[2025-03-21 07:04] VITALS: BMI 24.8
[2025-03-21] MEDS: Lactated Ringers 1,000 ML 100 ML IVCONT (07:22)
[2025-03-21] MEDS: Albuterol Sulfate (0.083%) 2.5 MG/3 ML VIAL.NEB INHALE (07:26)
--- NOTE | 2025-03-21 07:59 | MHC.SHP ---
Pre-Procedural Eval Section A - 24 Hr Update-Section A only Date of Service: 03/21/25 The patient is an INPATIENT: No Changes since office visit: Yes Patient answered all questions The patient has been examined within 24 hours of the surgical procedure. The History & Physical has been completed within 30 days and I have reviewed it.: No Section B - Complete if H&P > 30 days Chief Complaint: Spondylosis without myelopathy or radiculopathy, Details of Present Illness: As above Relevant Family History (Specify if Yes): No Relevant Social History: None Present Medications: see Short Stay Collaborative assessment Medical History: No relevant PMH History of Previous Operations: No relevant previous surgery Allergies: Allergies Allergy/AdvReac Type Severity Reaction Status Date / Time No Known Allergies Allergy Verified 02/20/25 13:15 Review of Systems Sugical H&P ROS: Negative: Constitution, Cardiovascular, Respiratory, Neurological, Psychiatric, Hem-Onc, Allergic/Immunologic, Gastrointestinal, Genitourinary, Integumentary, Endocrine and Eyes/Ears/Nose/Throat and Yes, Specify: Musculoskeletal (Spondylosis lumbar without myelopathy or radiculopathy) Exam Surgical H&P Exam: Normal: HEENT, Normal: Heart, Normal: Lungs, Normal: Extremities, Normal: Abdomen, Normal: Skin and Normal: Neurological Plan Diagnosis/Plan: Unchanged I have reviewed the history and physical and performed a pertinent physical examination on my patient. No changes have occurred unless specified. Time Spent With Patient Time: Total time managing care of this patient today __5__ minutes.
--- NOTE | 2025-03-21 08:49 | PM.OP ---
Brief Operative Note Date of Service: 03/21/25 Pre-op diagnosis: Spondylosis thoracolumbar spine Post-op diagnosis: same Procedure: Diagnostic medial branch block T11-T12 L1 bilateral. Surgeon: Shai Mullen MD Anesthesia: local Was an Assistant To The Dean used for this Procedure?: No Estimated blood loss (mL): 0 Condition: stable Disposition: PACU
--- NOTE | 2025-03-21 08:50 | W.PM.OPN ---
Operative Note Operative Note Date of Service: 03/21/25 Narrative: Diagnostic medial branch block T11-T12 and L1 bilateral ? ?Informed consent was explained to the patient. All questions were explained and? answered.? The patient was taken inside the operating room where he was positioned prone on the operating table. Time-out was performed delineating correct site, side, the nature of the procedure, patient's allergy, . All operating room staff was participating in OR time-out procedure. ? ? The entire back was prepped with ChloraPrep and draped with sterile utility towels.? C-arm was brought over the operating field and sq picture of lower thoracic and upper lumbar AREA were delineated on the screen.? Palpation was performed under x-ray guidance and patient reported that most pain he feels in the projection of the T12 and L1 spinous processes. Decision was made to perform procedure as above. Point of interest were delineated as confluence of superior articular process of L1 and L2 vertebra bilaterally with corresponding transverse processes as well as most superior margin of the transverse processes bilaterally of the T12 vertebra. .? The projection of the point of interest to the skin were injected with the small amount of local anesthetic lidocaine 2% mixed with ropivacaine 0.5% 1-1 approximately 1 cc.? After that 22 gauge 3.5 inch spinal needle was driven sequentially to the points of interest in tunnel vision fashion. After needles gently contacted the bone at the point of interests the needle was injected with small amount of the contrast.? The injection of the contrast did not demonstrate any intravascular or intrathecal spread of the contrast.? After that injection of the? ropivacaine 0.5%-1cc was performed at each needle location.?After that the needles were removed and Bandaids were applied.
[2025-03-21 08:51] VITALS: BP 142/74; PULSE 70; RESP 16; TEMP 36.1; O2SAT 95
== END 2025-03-21 09:15 | disposition home or self-care (01) ==
PROVIDERS: PCP Student in an Organized Health Care Education/Training Program; Visit Provider Anesthesiology
PROC: (CPT 64490; principal; 2025-03-21 08:30)
DX: M47.814 Spondylosis without myelopathy or radiculopathy, thoracic region (principal); M47.816 Spondylosis without myelopathy or radiculopathy, lumbar region; G89.4 Chronic pain syndrome; M54.50 Low back pain, unspecified; R26.2 Difficulty in walking, not elsewhere classified; Z87.828 Personal history of other (healed) physical injury and trauma; J43.9 Emphysema, unspecified; E78.00 Pure hypercholesterolemia, unspecified; E78.1 Pure hyperglyceridemia; Z90.2 Acquired absence of lung [part of]; F17.210 Nicotine dependence, cigarettes, uncomplicated; K21.9 Gastro-esophageal reflux disease without esophagitis
CPT/HCPCS: 64490; 64493; J2003; J2795; Q9967

== ENCOUNTER → 2025-03-21 06:57 | Outpatient (BNV) | payer MEDICARE, SELFPAY | PROVIDERS: PCP Student in an Organized Health Care Education/Training Program; Visit Provider Anesthesiology | DX: M47.814 Spondylosis without myelopathy or radiculopathy, thoracic region (principal) | CPT/HCPCS: 64490; 64493 ==

== ENCOUNTER 2025-03-26 13:38 | Outpatient (AMB) | payer MEDICARE, SELFPAY ==
[2025-03-26 13:40] VITALS: BP 171/81; PULSE 75; RESP 16; O2SAT 98; BMI 24.4
--- NOTE | 2025-03-26 13:40 | A.OFFVIS_ITS ---
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 He reports absence of pain for 1st 3 hours after the procedure. He reports on the 4th our the of the procedure pain started to increase slightly. And on the 5th and 6 hours a procedure patient felt pain returning back to where it was before. He reports at this time he feels minimal discomfort in the upper back. He reports that on the background of disappearing upper back injection his pain which he called ?sciatica ?is getting aggravated. Reports pain in the lower back with radiation down to the left lower extremity all the way to the top of his foot. Most likely L5 radiculopathy. I will schedule him for MRI of the lumbar spine. It looks like he never had an MRI of the lumbar spine. To help his pain in the lower back I will start him on gabapentin 400 mg t.i.d.. At the same time we would need to consider further actions when pain in the thoracic spine will come back. Sprint PNS versus RFA procedure is possible to help the pain of this patient in the upper lumbar lower thoracic spine. Prior: upper lumbar back pain. pain started 15 years ago. He had a trauma at [facility]. He reports his pain 8/10. standing and walking aggravates his pain. Flexing forward equally aggravates his pain with flexing backwards. Coughing increase his pain. He reports that he is not comfortable lying flat in bed. He had x-ray of the lumbar spine results of which dictated as below. He had physical therapy several times attempts in the past 15 years which only aggravated his pain. He went to a chiropractor 15 years ago and it also aggravated his pain. He tried over the years bracing and occupational therapy with supposed to help his pain but it did not. He tried 10s unit with no help. He had facet joint injections performed by Dr. Kirstie long time ago. He denies help from those injections. He tried tramadol for his pain but stopped this medication because it made him lightheaded and dizzy and caused him to be anxious. His past medical history significant for elevated cholesterol. Past surgical history 10 years ago he had lung resection for benign tumor. He admits smoking 3/4 of pack of cigarettes a day. He drinks 3-6 beers a week. He denies recreational drugs he admits drinking soda. [facility] Medical History Foot pain Screening for lung cancer Low back pain Hypertriglyceridemia Emphysema, unspecified Esophageal reflux Back pain Elevated cholesterol Surgical History History of lung surgery Social History Housing: House Patient Tobacco Use Status: Current everyday Tobacco user Tobacco use type: Cigarette Cigarette Packs Per Day: 0.5 Cigarettes Per Day: 10.0 e-Cigarette/Vaping Use: Never Used service: No Current occupational status: retired Review of Systems Const All systems reviewed & are unremarkable except as noted in HPI and below ENT Reports Normal hearing present Neuro Reports Normal hearing present, Denies Abnormal speech present, Denies confusion and Denies Sensory deficit (Neuro) Psych Denies confusion Physical Exam Vital Signs: Last Vital Signs Pulse 75 03/26/25 13:40 Resp 16 03/26/25 13:40 BP 171/81 H 03/26/25 13:40 Pulse Ox 98 03/26/25 13:40 Oxygen Delivery Method Room Air 03/26/25 13:40 BMI result Body Mass Index 24.4 Const General: no acute distress; No confusion Nutritional Appearance: well nourished Orientation/consciousness: patient oriented x3 and No confusion Limitations: no limitations Eyes General: appearance normal, both eyes and all related structures Pupils: Equal, round and reactive pupils present EOM: EOMs intact bilaterally Neck Neck: Yes full ROM Chest Chest palpation & inspection: normal inspection of the chest Resp Effort & Inspection: normal respiratory effort, able to speak in complete sentences, normal respiratory pattern, no audible wheezes and no cough Cardio Jugular venous distension: no JVD GI Inspection: Yes normal to inspection Back/Spine/Pelvis Other: Loading test is positive bilaterally. There is tenderness on palpation in the projection of approximately T12-L1 L2 and L3 spinous processes as well as paraspinal regions of these vertebras. Valsalva maneuver aggravate his pain. Denies radiation of the pain into bilateral lower extremities. Denies radiation of the pain in bilateral groins. Denies pelvic organ dysfunction. Neuro General: patient oriented x3, gait normal and No confusion Cranial nerves: Yes CN's II-XII intact bilaterally, Yes Equal, round and reactive pupils present, Yes Normal hearing present and Yes Ability to bilaterally elevate shoulders present Speech: No Abnormal speech present Gait exam (Neuro): Normal gait present Motor exam (neuro): 5/5 motor strength present throughout Sensory Exam: No Sensory deficit (Neuro) Extrem General: No pedal edema Psych Speech and movement: Normal speech and movement present Affect: normal affect Attitude: cooperative Thought process: Normal thought process present Thought content: Normal thought content present Insight: Good insight present (Psych) Judgement: Good judgement present (Psych) Assessment & Plan Assessment & Plan (1) Lumbosacral radiculopathy at L5: Code(s): M54.17 - Radiculopathy, lumbosacral region Category: Medical (2) Spondylosis of lumbar region without myelopathy or radiculopathy: Code(s): M47.816 - Spondylosis without myelopathy or radiculopathy, lumbar region Category: Medical Plan Very good results of the diagnostic T11, T12, L1 bilateral medial branch block. However on the background of disappearing pain in the upper lumbar spine pain in the lower lumbar spine with radiation down to the left lower extremity got aggravated. I will send this patient to the MRI of the lumbar spine. It looks like that he never had any MRI before. I also will start him on gabapentin 400 mg t.i.d.. I will see him in this office after he finishes MRI. He was given instruction to schedule appointment with me the very moment he will step out of the MRI machine.. Orders: Orders MR lumbar spine wo con Today M47.816 - Spondylosis without myelopathy or radiculopathy, lumbar region, M54.17 - Radiculopathy, lumbosacral region Medications: New gabapentin 400 mg PO TID 90 caps 8RF 30 days M54.17 - Radiculopathy, l umbosacral region Coding Level of Care Code Est Pt Level 3 (63720) Diagnoses Lumbosacral radiculopathy at L5 M54.17 Spondylosis of lumbar region without myelopathy or radiculopathy M47.816
--- OUTSIDE RECORDS SUMMARY | 2025-03-26 17:25 | XMS_ITS | Patient Health Record ---
Author Organization [facility] Address [address] [place] [address] Care Team Providers Care Lab Support Service Tech Name Role Phone Riki (RETIRED) Mohsen DEAL Primary Care Provide Aung Hobbs Jr Unavailable Allergies No Known Allergies Reason For Referral No Information Medications Medication SIG (Take, Route, Frequency, Duration) Notes Start Date End Date Status MiraLax (colon prep) 17 GM/SCOOP mixed with Gatorade or Crystal Light Orally begin at 5:00 p.m. the day before the procedure; Duration: 1 day 09/28/2022 Active Omeprazole 20 MG [...] Problem Status W/U Status Risk Notes Problem Colon cancer screening (531758337) Colon cancer screening (Z12.11) Active confirmed Problem Pre-procedure evaluation check (070598532) Encounter for other preprocedural examination (Z01.818) Active confirmed Problem Family History of Cancer of Colon (Situation) (493754417) Family history of colon cancer (Z80.0) Active confirmed Plan Of Treatment Future Test Test Name Order Date COLONOSCOPY 06/21/2012 COLONOSCOPY 08/23/2017 COLONOSCOPY 09/28/2022 Insurance Providers Payer Name Payer Address Payer Phone Subscriber Number Group Number Insured Name Patient Relationship to Insured Coverage Start Date Coverage End Date [employer] [address] [address] [place] [address] [id number] LYRIC CARCAMO Self - patient is the insured Medical (General) History Medical History History ICD Code Elevated cholesterol back pain/disc disease esophageal reflux emphysema Surgical History Surgery Date(Month/Year) Right upper lobe wedge resection, benign pulmonary nodule 01/08
== END 2025-03-26 13:55 | disposition home or self-care (01) ==
LOC: HO.PMC 13:39
PROVIDERS: PCP Student in an Organized Health Care Education/Training Program; Visit Provider Anesthesiology
DX: M54.17 Radiculopathy, lumbosacral region (principal); M47.816 Spondylosis without myelopathy or radiculopathy, lumbar region
CPT/HCPCS: 99214

== ENCOUNTER → 2025-03-26 13:38 | Outpatient (BNVA) | payer MEDICARE, SELFPAY | PROVIDERS: PCP Student in an Organized Health Care Education/Training Program; Visit Provider Anesthesiology | DX: M47.816 Spondylosis without myelopathy or radiculopathy, lumbar region (principal); M54.17 Radiculopathy, lumbosacral region | CPT/HCPCS: 99212 ==

== ENCOUNTER 2025-04-09 12:44 | Outpatient (AMB) | payer MEDICARE, SELFPAY ==
[2025-04-09 13:03] VITALS: BP 177/81; PULSE 81; RESP 16; O2SAT 96; BMI 25.1
--- NOTE | 2025-04-09 13:03 | A.OFFVIS_ITS ---
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 After diagnostic medial branch block T11-T12 L1 he reported absence of the pain in the thoracic back spine. However he reported lower back pain after the procedure radiating into the left lower extremity in radicular fashion. He is sent for MRI in preparation for possible epidural steroid injection, the MRI scheduled on 04/17/25. Few days after that MRI will see the patient I will see the MRI and I will see the report of the radiologist. I probably will offer transforaminal epidural steroid injection for the patient. The patient today wanted me to prescribe him tramadol to temporize his waiting until his MRI and definitive procedures. I explained to the patient that we do not prescribe short scripts. If he wants to receive opioid medications from this office he would have to become a member of chronic opioid program. It require some time and few appointments. I explained that to the patient. I explained also to him that to temporize his pain I can increase his dose of gabapentin and also prescribe him small dose of tizanidine to help his pain. He prescriptions as below. Next appointment after MRI. Prior: upper lumbar back pain. pain started 15 years ago. He had a trauma at [employer]. He reports his pain 8/10. standing and walking aggravates his pain. Flexing forward equally aggravates his pain with flexing backwards. Coughing increase his pain. He reports that he is not comfortable lying flat in bed. He had x-ray of the lumbar spine results of which dictated as below. He had physical therapy several times attempts in the past 15 years which only aggravated his pain. He went to a chiropractor 15 years ago and it also aggravated his pain. He tried over the years bracing and occupational therapy with supposed to help his pain but it did not. He tried 10s unit with no help. He had facet joint injections performed by Dr. Thacker long time ago. He denies help from those injections. He tried tramadol for his pain but stopped this medication because it made him lightheaded and dizzy and caused him to be anxious. His past medical history significant for elevated cholesterol. Past surgical history 10 years ago he had lung resection for benign tumor. He admits smoking 3/4 of pack of cigarettes a day. He drinks 3-6 beers a week. He denies recreational drugs he admits drinking soda. [facility] Medical History Foot pain Screening for lung cancer Low back pain Hypertriglyceridemia Emphysema, unspecified Esophageal reflux Back pain Elevated cholesterol Surgical History History of lung surgery Social History Housing: House Patient Tobacco Use Status: Current everyday Tobacco user Tobacco use type: Cigarette Cigarette Packs Per Day: 0.5 Cigarettes Per Day: 10.0 e-Cigarette/Vaping Use: Never Used service: No Current occupational status: retired Review of Systems Const All systems reviewed & are unremarkable except as noted in HPI and below ENT Reports Normal hearing present Neuro Reports Normal hearing present, Denies Abnormal speech present, Denies confusion and Denies Sensory deficit (Neuro) Psych Denies confusion Physical Exam Vital Signs: Last Vital Signs Pulse 81 04/09/25 13:03 Resp 16 04/09/25 13:03 BP 177/81 H 04/09/25 13:03 Pulse Ox 96 04/09/25 13:03 Oxygen Delivery Method Room Air 04/09/25 13:03 BMI result Body Mass Index 25.1 Const General: no acute distress; No confusion Nutritional Appearance: well nourished Orientation/consciousness: patient oriented x3 and No confusion Limitations: no limitations Eyes General: appearance normal, both eyes and all related structures Pupils: Equal, round and reactive pupils present EOM: EOMs intact bilaterally Neck Neck: Yes full ROM Chest Chest palpation & inspection: normal inspection of the chest Resp Effort & Inspection: normal respiratory effort, able to speak in complete sentences, normal respiratory pattern, no audible wheezes and no cough Cardio Jugular venous distension: no JVD GI Inspection: Yes normal to inspection Back/Spine/Pelvis Other: Loading test is positive bilaterally. There is tenderness on palpation in the projection of approximately T12-L1 L2 and L3 spinous processes as well as paraspinal regions of these vertebras. Valsalva maneuver aggravate his pain. Severe low back pain with radiation into the left lower extremity. The pain radiates into the lateral thigh anterior lower leg and anterior back of his foot. Neuro General: patient oriented x3, gait normal and No confusion Cranial nerves: Yes CN's II-XII intact bilaterally, Yes Equal, round and reactive pupils present, Yes Normal hearing present and Yes Ability to bilaterally elevate shoulders present Speech: No Abnormal speech present Gait exam (Neuro): Normal gait present Motor exam (neuro): 5/5 motor strength present throughout Sensory Exam: No Sensory deficit (Neuro) Extrem General: No pedal edema Psych Speech and movement: Normal speech and movement present Affect: normal affect Attitude: cooperative Thought process: Normal thought process present Thought content: Normal thought content present Insight: Good insight present (Psych) Judgement: Good judgement present (Psych) Results Reviewed Results Reviewed: XR LUMBOSACRAL SPINE CLINICAL INFORMATION: M54.50 - Low back pain, unspecified COMPARISON: None available. TECHNIQUE: Three views of the lumbosacral spine. FINDINGS: Atherosclerotic calcification is present in the lower abdominal aorta and proximal common iliac arteries. There are 5 non-rib bearing lumbar segments. Vertebral body height and alignment is preserved. T12-L1: There is mild disc space narrowing. L1-L2: There is subtle retrolisthesis. There is moderate disc space narrowing with endplate sclerosis and osteophytes L2-L3: There is subtle grade 1 retrolisthesis, moderate disc space during, and anterior osteophytes L3-L4: There is subtle grade 1 retrolisthesis and mild disc space narrowing L4-L5: Unremarkable L5-S1: Unremarkable IMPRESSION: Degenerative disc disease is most advanced at L1-L2 by L2-3. Assessment & Plan Assessment & Plan (1) Spondylosis of lumbar region without myelopathy or radiculopathy: Code(s): M47.816 - Spondylosis without myelopathy or radiculopathy, lumbar region Category: Medical (2) Spondylosis of thoracic region without myelopathy or radiculopathy: Code(s): M47.814 - Spondylosis without myelopathy or radiculopathy, thoracic region Category: Medical (3) Lumbosacral radiculopathy at L5: Code(s): M54.17 - Radiculopathy, lumbosacral region Category: Medical (4) Chronic pain syndrome: Code(s): G89.4 - Chronic pain syndrome Category: Medical Plan I will schedule this patient for transforaminal epidural L4-5 epidural steroid injection as soon as I will see results of the MRI, it is scheduled on . He is scheduled for appointment with me week after his MRI. Great results of the thoracic medial branch block diagnostic. Patient does not report pain in the upper back. To temporize his pain I increase the dose of his gabapentin to 400 mg 4 times a day so he can not take 800 mg of gabapentin at night. I also started him on tizanidine 2 mg q.h.s.. Medications: New gabapentin 400 mg PO .4 times a day 120 caps 8RF 30 days tizanidine 2 mg PO .QHS PRN 30 tabs 1RF muscle spasticity 30 days Discontinued gabapentin Discontinued Reason: Doctor's Order 400 mg PO TID 30 days 90 caps 8RF M54.17 - Radiculopathy, lumbosacral region Coding Level of Care Code Est Pt Level 3 (96077) Diagnoses Spondylosis of lumbar region without myelopathy or radiculopathy M47.816 Spondylosis of thoracic region without myelopathy or radiculopathy M47.814 Lumbosacral radiculopathy at L5 M54.17 Chronic pain syndrome G89.4
--- OUTSIDE RECORDS SUMMARY | 2025-04-09 15:21 | XMS_ITS | Patient Health Record ---
Author Organization [facility] Address [address] [place] [address] Care Team Providers Care Pyrometer Mechanic Name Role Phone Riki (RETIRED) Mohsen DEAL Primary Care Provide Aung Hobbs Jr Unavailable [phone] Allergies No Known Allergies Reason For [...] Status Risk Notes Problem Colon cancer screening (743166995) Colon cancer screening (Z12.11) Active confirmed Problem Pre-procedure evaluation check (900221780) Encounter for other preprocedural examination (Z01.818) Active confirmed Problem Family History of Cancer of Colon (Situation) (095080440) Family history of colon cancer (Z80.0) Active confirmed Plan Of Treatment Future Test Test Name Order Date COLONOSCOPY 06/21/2012 COLONOSCOPY 08/23/2017 COLONOSCOPY 09/28/2022 Insurance Providers Payer Name Payer Address Payer Phone Subscriber Number Group Number Insured Name Patient Relationship to Insured Coverage Start Date Coverage End Date [employer] [address] [address] [place] [address] [id number] LYRIC CARCAMO Self - patient is the insured Medical (General) History Medical History History ICD Code Elevated cholesterol back pain/disc disease esophageal reflux emphysema Surgical History Surgery Date(Month/Year) Right upper lobe wedge resection, benign pulmonary nodule 01/08
== END 2025-04-09 13:31 | disposition home or self-care (01) ==
LOC: HO.PMC 12:44
PROVIDERS: PCP Student in an Organized Health Care Education/Training Program; Visit Provider Anesthesiology
DX: M47.816 Spondylosis without myelopathy or radiculopathy, lumbar region (principal); M47.814 Spondylosis without myelopathy or radiculopathy, thoracic region; M54.17 Radiculopathy, lumbosacral region; G89.4 Chronic pain syndrome
CPT/HCPCS: 99214

== ENCOUNTER → 2025-04-09 12:44 | Outpatient (BNVA) | payer MEDICARE, SELFPAY | PROVIDERS: PCP Student in an Organized Health Care Education/Training Program; Visit Provider Anesthesiology | DX: M54.16 Radiculopathy, lumbar region (principal); M79.605 Pain in left leg; M47.816 Spondylosis without myelopathy or radiculopathy, lumbar region; M47.814 Spondylosis without myelopathy or radiculopathy, thoracic region; G89.4 Chronic pain syndrome; Z72.0 Tobacco use | CPT/HCPCS: 99212 ==

== ENCOUNTER 2025-04-17 07:46 | Outpatient (REF) | payer MEDICARE, SELFPAY ==
--- NOTE | ~2025-04-17 | MR_ITS ---
EXAMINATION: MR LUMBAR SPINE WITHOUT CONTRAST CLINICAL INFORMATION: Spondylosis without myelopathy or radiculopathy, lumbar region. Left sided sciatica. COMPARISON: No prior available. Radiographs of the lumbar spine 02/03/2025. Report of MR lumbar dated 10/16/2012. Images are archived and not available for direct review. TECHNIQUE: Multiplanar multisequence MR imaging of the lumbar spine was done without IV contrast. Examination was performed on a 1.5 Romelia Siemens magnet, utilizing standard sequences. FINDINGS: CORONAL ALIGNMENT: -Normal. SAGITTAL ALIGNMENT: - Normal lordosis. -There is a 3 mm degenerative retrolisthesis of L1 upon L2, and a similar retrolisthesis of L2 on L3. -There is a trace anterolisthesis of L3 on L4. -Sagittal alignment is otherwise anatomic. LUMBOSACRAL JUNCTION: -Normal. There are 5 [id number] lumbar-type vertebral bodies. VERTEBRAL BODIES/BONE MARROW: -There are fatty type endplate changes at L1-L2. -There are mild to moderate edematous type endplate changes at L2-3 most notable ventrally. -There is a prominent Schmorl's node in the superior endplate of L2. -There is no abnormal infiltrating bone marrow signal, or fracture evident. DISCS: -Moderate loss of disc height and signal is present spanning L1-L4. -There is mild loss of disc signal without loss of disc height at T12-L1. -There is preservation of disc height and signal at L4-5 and L5-S1. SPINAL CANAL: -No abnormal developmental findings. CONUS MEDULLARIS: -Terminates at L1. Morphology and signal is normal. INTRADURAL NERVE ROOTS: - Normal in appearance. No clumping or nerve root mass. Axial Disc Space Images: T12-L1: There is a minimal/shallow disc bulge present without significant mass effect upon the thecal sac. There is no significant central canal or neural foraminal narrowing. The facets are normal. L1-L2: There is a concentric diffuse disc bulge present extending into both foraminal zones. There is central annular fissuring. This indents upon the ventral thecal sac, but does not contact nerve roots. There are mild hypertrophic degenerative facet changes bilaterally, with the combination of findings resulting in minimal central canal narrowing, minimal left greater than right subarticular recess narrowing, and mild left greater than right neural foraminal narrowing. L2-L3: There is a concentric disc bulge present extending into both foraminal zones. There is central annular fissuring present. This indents upon the ventral thecal sac but does not contact nerve roots. There are mild hypertrophic degenerative facet changes bilaterally, with the combination of findings resulting in minimal central canal narrowing, and mild to moderate bilateral neural foraminal narrowing. L3-L4: Shallow concentric disc bulge extending into the bilateral foraminal zones, with annular fissuring in the right foramen. Mild hypertrophic degenerative facet changes bilaterally with minimal posterior ligamentous thickening/infolding. There is minimal central canal narrowing. There is mild bilateral neural foraminal narrowing right greater than left. L4-L5: No significant disc bulge. There is no central canal or neural foraminal narrowing. Minimal bilateral facet degenerative changes. L5-S1: No significant disc bulge. Mild to moderate left greater than right degenerative facet changes. No central canal, subarticular recess, or neural foraminal narrowing. IMAGED SI JOINTS: -Minimal degenerative changes bilaterally. PARAVERTEBRAL AND INCLUDED EXTRASPINAL SOFT TISSUES: -Normal in appearance. The aorta is normal in caliber. -There is no paraspinous or paravertebral edema or abnormal fluid collection. MR/MR lumbar spine wo con IMPRESSION: 1. Mild to moderate lumbar spondylosis most significant at L1-L4. 2. No significant central canal, subarticular recess, or neural foraminal narrowing at any level. See the body of the report for details. 3. There are edematous type endplate changes present ventrally at L2-3. Electronically signed by: Beka Zhao MD 04/17/2025 11:15 AM [facility]
--- OUTSIDE RECORDS SUMMARY | 2025-04-17 07:55 | XMS_ITS | Patient Health Record ---
Author Organization [facility] Address [address] [place] [address] Care Team Providers Care Tennis Net Maker Name Role Phone Riki (RETIRED) Mohsen DEAL Primary Care Provide Aung Hobbs Jr Unavailable [phone] Allergies No Known Allergies Reason For Referral No Information Medications Medication SIG (Take, Route, Frequency, Duration) Notes Start Date End Date Status MiraLax (colon prep) 17 GM/SCOOP Powder mixed with Gatorade or Crystal Light Orally begin at 5:00 p.m. the day before the procedure; Duration: 1 day 09/28/2022 Active Omeprazole 20 MG Capsule Delayed Release 1 capsule Orally Once a day Active traMADol HCl 50 MG Tablet 2 tablet as ne eded Orally prn Active Immunizations Vaccine Route Administration Date Status Comme nts Influenza Unknown 09/28/2022 Refused Social History Tobacco Use: Social History Observation Description Date Details (start date - stop date) Current Smoker NA - NA Social History Tobacco Use: Social Info Question Answer Notes Tobacco Use/Smoking Patient is a current smoker How often do you smoke cigarettes? every day How many cigarettes a day do you smoke? 6-10 How soon after you wake up do you smoke your first cigarette? 6-30 minutes Are you interested in quitting? Thinking about quitting Additional Details Category Social Info Options Details Miscellaneous: Marital status: Occupation: retired Problems Problem Type SNOMED Code ICD Code Onset Dates Problem Status W/U Status Risk Notes Problem Colon cancer screening (068969154) Colon cancer screening (Z12.11) Active confirmed Problem Pre-procedure evaluation check (398908608) Encounter for other preprocedural examination (Z01.818) Active confirmed Problem Family History of Cancer of Colon (Situation) (121658171) Family history of colon cancer (Z80.0) Active confirmed Plan Of Treatment Future Test Test Name Order Date COLONOSCOPY 06/21/2012 COLONOSCOPY 08/23/2017 COLONOSCOPY 09/28/2022 Insurance Providers Payer Name Payer Address Payer Phone Subscriber Number Group Number Insured Name Patient Relationship to Insured Coverage Start Date Coverage End Date [employer] [address] [address] [place] [address] [id number] LYRIC CARCAMO Self - patient is the insured Medical (General) History Medical History History ICD Code Elevated cholesterol back pain/disc disease esophageal reflux emphysema Surgical History Surgery Date(Month/Year) Right upper lobe wedge resection, benign pulmonary nodule 01/08
== END 2025-04-17 07:47 | disposition home or self-care (01) ==
LOC: HO.MRI 07:46
PROVIDERS: PCP Student in an Organized Health Care Education/Training Program; Visit Provider Anesthesiology
DX: M47.816 Spondylosis without myelopathy or radiculopathy, lumbar region (principal); M54.17 Radiculopathy, lumbosacral region; M54.32 Sciatica, left side
CPT/HCPCS: 72148

== ENCOUNTER → 2025-04-17 07:46 | Outpatient (BNV) | payer MEDICARE, SELFPAY | PROVIDERS: PCP Student in an Organized Health Care Education/Training Program; Visit Provider Radiology Diagnostic Radiology | DX: M47.816 Spondylosis without myelopathy or radiculopathy, lumbar region (principal); M54.32 Sciatica, left side | CPT/HCPCS: 72148 ==

== ENCOUNTER 2025-04-23 09:35 | Outpatient (AMB) | payer MEDICARE, SELFPAY ==
[2025-04-23 09:37] VITALS: BP 162/77; PULSE 81; RESP 16; O2SAT 98; BMI 24.9
--- NOTE | 2025-04-23 09:37 | A.OFFVIS_ITS ---
Vital Signs 04/23/25 09:37 Height 5 ft 7 in Weight 159 lb BMI 24.9 BP 162/77 H Blood Pressure Location Lt brachial Position Sitting Respiration 16 Pulse 81 Pulse Source Pulse Oximeter Pulse Oximetry (%) 98 Oxygen Delivery Method Room Air Intake Visit Reasons: 2 week Follow Up Per Dr. Mullen Cnc Lathe Programmer Required: No Accompanied by: Life Partner Allergies No Known Allergies Allergy (Verified 04/23/25 09:41) HPI Comments Details: Rd is back in my office after MRI procedure. The full MRI report dictated as below. MRI did not demonstrate any nerve root compression. Some minor foraminal stenosis and minimal central canal stenosis could not explain the pain of this patient. On the entire image there is no nerve root connection or compression from the facets or discs. However the MRI demonstrated advanced spondylosis from L1 all the way down to L4. It also demonstrated significant Modic type 2 changes at L1, L2, L3 vertebra. Patient reports pain in the lower back with prolonged sitting, pain with flexing forward as well as flexing backwards. He reports aggravation of the pain with the attempts to lift subject from the floor. He reports that he is unable to even think about flexing his back backwards he experiences severe pain. He had multiple sessions of very advanced physical therapy, chiropractic manipulations, occupational therapy, bracing. None of it helps his pain. I believe the pain of this patient is mult ifactorial. There is a certain involvement of facet joints in 1 site of his pain. There is also vertebra genic low back pain which does not allow him to sit for significant period of time. Prior: After diagnostic medial branch block T11-T12 L1 he reported absence of the pain in the thoracic back spine upper lumbar back pain. pain started 15 years ago. He had a trauma at [employer] He reports his pain 8/10. standing and walking aggravates his pain. Flexing forward equally aggravates his pain with flexing backwards. Coughing increase his pain. He reports that he is not comfortable lying flat in bed. He had x-ray of the lumbar spine results of which dictated as below. He had physical therapy several times attempts in the past 15 years which only aggravated his pain. He went to a chiropractor 15 years ago and it also aggravated his pain. He tried over the years bracing and occupational therapy with supposed to help his pain but it did not. He tried 10s unit with no help. He had facet joint injections performed by Dr. Thacker long time ago. He denies help from those injections. He tried tramadol for his pain but stopped this medication because it made him lightheaded and dizzy and caused him to be anxious. His past medical history significant for elevated cholesterol. Past surgical history 10 years ago he had lung resection for benign tumor. He admits smoking 3/4 of pack of cigarettes a day. [facility] Medical History Foot pain Screening for lung cancer Low back pain Hypertriglyceridemia Emphysema, unspecified Esophageal reflux Back pain Elevated cholesterol Surgical History History of lung surgery Social History Housing: House Patient Tobacco Use Status: Current everyday Tobacco user Tobacco use type: Cigarette Cigarette Packs Per Day: 0.5 Cigarettes Per Day: 10.0 e-Cigarette/Vaping Use: Never Used service: No Current occupational status: retired Review of Systems Const All systems reviewed & are unremarkable except as noted in HPI and below ENT Reports Normal hearing present Neuro Reports Normal hearing present, Denies Abnormal speech present, Denies confusion and Denies Sensory deficit (Neuro) Psych Denies confusion Physical Exam Vital Signs: Last Vital Signs Pulse 81 04/23/25 09:37 Resp 16 04/23/25 09:37 BP 162/77 H 04/23/25 09:37 Pulse Ox 98 04/23/25 09:37 Oxygen Delivery Method Room Air 04/23/25 09:37 BMI result Body Mass Index 24.9 Const General: no acute distress; No confusion Nutritional Appearance: well nourished Orientation/consciousness: patient oriented x3 and No confusion Limitations: no limitations Eyes General: appearance normal, both eyes and all related structures Pupils: Equal, round and reactive pupils present EOM: EOMs intact bilaterally Neck Neck: Yes full ROM Chest Chest palpation & inspection: normal inspection of the chest Resp Effort & Inspection: normal respiratory effort, able to speak in complete sentences, normal respiratory pattern, no audible wheezes and no cough Cardio Jugular venous distension: no JVD GI Inspection: Yes normal to inspection Back/Spine/Pelvis Other: Loading test is positive bilaterally. There is tenderness on palpation in the projection of approximately T12-L1 L2 and L3 spinous processes as well as paraspinal regions of these vertebras. Valsalva maneuver aggravate his pain. Severe low back pain with radiation into the left lower extremity. The pain radiates into the lateral thigh anterior lower leg and anterior back of his foot. Neuro General: patient oriented x3, gait normal and No confusion Cranial nerves: Yes CN's II-XII intact bilaterally, Yes Equal, round and reactive pupils present, Yes Normal hearing present and Yes Ability to bilaterally elevate shoulders present Speech: No Abnormal speech present Gait exam (Neuro): Normal gait present Motor exam (neuro): 5/5 motor strength present throughout Sensory Exam: No Sensory deficit (Neuro) Extrem General: No pedal edema Psych Speech and movement: Normal speech and movement present Affect: normal affect Attitude: cooperative Thought process: Normal thought process present Thought content: Normal thought content present Insight: Good insight present (Psych) Judgement: Good judgement present (Psych) Results Reviewed Results Reviewed: MR LUMBAR SPINE WITHOUT CONTRAST CLINICAL INFORMATION: Spondylosis without myelopathy or radiculopathy, lumbar region. Left sided sciatica. COMPARISON: No prior available. Radiographs of the lumbar spine 02/03/2025. Report of MR lumbar dated 10/16/2012. Images are archived and not available for direct review. TECHNIQUE: Multiplanar multisequence MR imaging of the lumbar spine was done without IV contrast. Examination was performed on a 1.5 Romelia Siemens magnet, utilizing standard sequences. FINDINGS: CORONAL ALIGNMENT: -Normal. SAGITTAL ALIGNMENT: - Normal lordosis. -There is a 3 mm degenerative retrolisthesis of L1 upon L2, and a similar retrolisthesis of L2 on L3. -There is a trace anterolisthesis of L3 on L4. -Sagittal alignment is otherwise anatomic. LUMBOSACRAL JUNCTION: -Normal. There are 5 [id number] lumbar-type vertebral bodies. VERTEBRAL BODIES/BONE MARROW: -There are fatty type endplate changes at L1-L2. -There are mild to moderate edematous type endplate changes at L2-3 most notable ventrally. -There is a prominent Schmorl's node in the superior endplate of L2. -There is no abnormal infiltrating bone marrow signal, or fracture evident. DISCS: -Moderate loss of disc height and signal is present spanning L1-L4. -There is mild loss of disc signal without loss of disc height at T12-L1. -There is preservation of disc height and signal at L4-5 and L5-S1. SPINAL CANAL: -No abnormal developmental findings. CONUS MEDULLARIS: -Terminates at L1. Morphology and signal is normal. INTRADURAL NERVE ROOTS: - Normal in appearance. No clumping or nerve root mass. Axial Disc Space Images: T12-L1: There is a minimal/shallow disc bulge present without significant mass effect upon the thecal sac. There is no significant central canal or neural foraminal narrowing. The facets are normal. L1-L2: There is a concentric diffuse disc bulge present extending into both foraminal zones. There is central annular fissuring. This indents upon the ventral thecal sac, but does not contact nerve roots. There are mild hypertrophic degenerative facet changes bilaterally, with the combination of findings resulting in minimal central canal narrowing, minimal left greater than right subarticular recess narrowing, and mild left greater than right neural foraminal narrowing. L2-L3: There is a concentric disc bulge present extending into both foraminal zones. There is central annular fissuring present. This indents upon the ventral thecal sac but does not contact nerve roots. There are mild hypertrophic degenerative facet changes bilaterally, with the combination of findings resulting in minimal central canal narrowing, and mild to moderate bilateral neural foraminal narrowing. L3-L4: Shallow concentric disc bulge extending into the bilateral foraminal zones, with annular fissuring in the right foramen. Mild hypertrophic degenerative facet changes bilaterally with minimal posterior ligamentous thickening/infolding. There is minimal central canal narrowing. There is mild bilateral neural foraminal narrowing right greater than left. L4-L5: No significant disc bulge. There is no central canal or neural foraminal narrowing. Minimal bilateral facet degenerative changes. L5-S1: No significant disc bulge. Mild to moderate left greater than right degenerative facet changes. No central canal, subarticular recess, or neural foraminal narrowing. IMAGED SI JOINTS: -Minimal degenerative changes bilaterally. PARAVERTEBRAL AND INCLUDED EXTRASPINAL SOFT TISSUES: -Normal in appearance. The aorta is normal in caliber. -There is no paraspinous or paravertebral edema or abnormal fluid collection. MR/MR lumbar spine wo con IMPRESSION: 1. Mild to moderate lumbar spondylosis most significant at L1-L4. 2. No significant central canal, subarticular recess, or neural foraminal narrowing at any level. See the body of the report for details. 3. There are edematous type endplate changes present ventrally at L2-3. Assessment & Plan Assessment & Plan (1) Spondylosis of lumbar region without myelopathy or radiculopathy: Code(s): M47.816 - Spondylosis without myelopathy or radiculopathy, lumbar region Category: Medical (2) Spondylosis of thoracic region without myelopathy or radiculopathy: Code(s): M47.814 - Spondylosis without myelopathy or radiculopathy, thoracic region Category: Medical (3) Lumbosacral radiculopathy at L5: Code(s): M54.17 - Radiculopathy, lumbosacral region Category: Medical (4) Chronic pain syndrome: Code(s): G89.4 - Chronic pain syndrome Category: Medical (5) Vertebrogenic low back pain: Code(s): M54.51 - Vertebrogenic low back pain Category: Medical Plan Very unlikely the pain of this patient is a result of the nerve root compressions. At least dictated above MRI does not demonstrate any nerve root compressions or even nerve abutment. Therefore to pain generations in the lower lumbar spine left for the patient. He is suffering from vertebra genic low back pain as well as from spondylosis. I will offer him to go for basivertebral nerve radiofrequency ablation at L2-L3 , possibly L1 vertebras. I will do this procedure 1st. After that I will schedule him for diagnostic medial branch block in preparation for treatment of the spondylosis of the lumbar spine at L2, L3, L4 bilateral in preparation for sprint PNS versus RFA of bilateral nerves. Great results of the thoracic medial branch block diagnostic. Patient still does not report pain in the upper back. It could be that on background stronger all lower back pain he does not pay much attention to the mid back pain. He continues to take gabapentin and Tylenol. I recommended him not to take more than 2000 mg of Tylenol a day. Patient expressed understanding. Patient Instructions: I here by testify that I spent 30 minutes in conversation with this patient as well as planning his care and organizing this note. Coding Level of Care Code Est Pt Level 4 (66720) Diagnoses Spondylosis of lumbar region without myelopathy or radiculopathy M47.816 Spondylosis of thoracic region without myelopathy or radiculopathy M47.814 Lumbosacral radiculopathy at L5 M54.17 Chronic pain syndrome G89.4 Vertebrogenic low back pain M54.51
--- OUTSIDE RECORDS SUMMARY | 2025-04-23 10:52 | XMS_ITS | Patient Health Record ---
Author Organization [facility] Address [address] [place] [address] Care Team Providers Care Bobcat Driver/Labor Name Role Phone Riki (RETIRED) Mohsen DEAL Primary Care Provide Aung Hobbs Jr Unavailable [phone] Allergies No Known Allergies Reason For [...] Status Risk Notes Problem Colon cancer screening (200176421) Colon cancer screening (Z12.11) Active confirmed Problem Pre-procedure evaluation check (180691077) Encounter for other preprocedural examination (Z01.818) Active confirmed Problem Family History of Cancer of Colon (Situation) (546410917) Family history of colon cancer (Z80.0) Active confirmed Plan Of Treatment Future Test Test Name Order Date COLONOSCOPY 06/21/2012 COLONOSCOPY 08/23/2017 COLONOSCOPY 09/28/2022 Insurance Providers Payer Name Payer Address Payer Phone Subscriber Number Group Number Insured Name Patient Relationship to Insured Coverage Start Date Coverage End Date [employer] [address] [address] [place] [address] [id number] LYRIC CARCAMO Self - patient is the insured Medical (General) History Medical History History ICD Code Elevated cholesterol back pain/disc disease esophageal reflux emphysema Surgical History Surgery Date(Month/Year) Right upper lobe wedge resection, benign pulmonary nodule 01/08
== END 2025-04-23 10:22 | disposition home or self-care (01) ==
LOC: HO.PMC 09:36
PROVIDERS: PCP Student in an Organized Health Care Education/Training Program; Visit Provider Anesthesiology
DX: M47.816 Spondylosis without myelopathy or radiculopathy, lumbar region (principal); M47.814 Spondylosis without myelopathy or radiculopathy, thoracic region; M54.17 Radiculopathy, lumbosacral region; G89.4 Chronic pain syndrome; M54.51 Vertebrogenic low back pain
CPT/HCPCS: 99214

== ENCOUNTER → 2025-04-23 09:35 | Outpatient (BNVA) | payer MEDICARE, SELFPAY | PROVIDERS: PCP Student in an Organized Health Care Education/Training Program; Visit Provider Anesthesiology | DX: M54.51 Vertebrogenic low back pain (principal); M47.816 Spondylosis without myelopathy or radiculopathy, lumbar region; M47.814 Spondylosis without myelopathy or radiculopathy, thoracic region; M54.17 Radiculopathy, lumbosacral region; G89.4 Chronic pain syndrome; Z72.0 Tobacco use | CPT/HCPCS: 99212 ==